=== PATIENT | female | born 1985 | race Caucasian/White ===

== ENCOUNTER → 2017-05-07 | Outpatient (REF) | payer OTHER ==
[2017-05-07 13:09] LABS: PERCENT SATURATION 30.4 % (13.2-37.4)
== END ==
LOC: M LAB REF 12:05
PROVIDERS: ATTEND Internal Medicine Medical Oncology
DX: E83.110 Hereditary hemochromatosis (principal)

== ENCOUNTER → 2017-05-14 | Outpatient (REF) | payer OTHER, MEDICAID ==
[2017-05-14 14:09] LABS: REASON FOR REVIEW COMPREHENSIVE REVIEW
== END ==
LOC: M LAB REF 13:25
PROVIDERS: ATTEND Internal Medicine Medical Oncology
DX: E83.110 Hereditary hemochromatosis (principal); D72.829 Elevated white blood cell count, unspecified

== ENCOUNTER → 2017-06-04 | Outpatient (REF) | payer OTHER, MEDICAID ==
[~2017-06-04] MED LIST: ACET30TAB PO; ADDE10CA3 PO; ESTR625TA PO; FURO20TA2; LISI10TA4; NAPR500T3 PO; NOVOINJ3; VICT18IN SC
[2017-06-04 19:08] LABS: FOLATE 9.8 NG/ML (>5.4)
== END ==
LOC: M LAB REF 16:37
PROVIDERS: ATTEND Internal Medicine Medical Oncology
DX: E83.110 Hereditary hemochromatosis (principal)

== ENCOUNTER → 2017-06-11 | Outpatient (CLI) | payer OTHER, MEDICAID ==
--- NOTE | 2017-06-11 15:37 | REP ---
MAXILLOFACIAL CT WITHOUT CONTRAST: HISTORY: Parotid mass. BBs were placed on the lateral face at the level of the masseter muscles. The sinuses are clear. The osteomeatal units are patent. The middle and inferior nasal turbinates are partially paradoxical. There is very minimal deviation of the nasal septum to the right. The cribriform plate, medial childs of the orbits, and optic canals are intact. The carotid canals form a segment of the posterolateral childs of the sphenoid sinus. The sphenoid sinus septum inserts into the right internal carotid canal wall. The naso- and oropharynx are normal in appearance. The salivary glands are normal in size and density. Small lymph nodes less than 1 cm in size are present in the posterior triangles, submandibular and submental areas. IMPRESSION: There is no acute or chronic sinusitis. Signed by Chu Booth MD 06/11/2017 03:41 P
== END ==
LOC: M RAD 12:16
PROVIDERS: ATTEND Otolaryngology
DX: R22.1 Localized swelling, mass and lump, neck (principal)

== ENCOUNTER 2017-07-06 20:11 | Emergency (ER) | payer OTHER, MEDICAID ==
[~2017-07-06] VITALS: Ht 162.6 cm; Wt 94.1 kg
[2017-07-06 20:12] VITALS: BP 138/90
[2017-07-06] MEDS ORDERED: ACET30TAB PO (20:48)
[2017-07-06] MEDS ORDERED: LISI10TA4 (20:48)
[2017-07-06] MEDS ORDERED: ESTR625TA PO (20:48)
[2017-07-06] MEDS ORDERED: NOVOINJ3 (20:48)
[2017-07-06] MEDS ORDERED: NAPR500T3 PO (20:48)
[2017-07-06] MEDS ORDERED: VICT18IN SC (20:48)
[2017-07-06] MEDS ORDERED: FURO20TA2 (20:48)
[2017-07-06] MEDS ORDERED: ADDE10CA3 PO (20:48)
== END 2017-07-06 22:35 | disposition left against medical advice (07) ==
LOC: M ED 20:11
DX: M25.551 Pain in right hip (principal); Z53.29 Procedure and treatment not carried out because of patient's decision for other reasons

== ENCOUNTER → 2017-07-08 | Outpatient (REF) | payer MEDICAID ==
[2017-07-08 16:18] LABS: CALCIUM LEVEL 9.4 MG/DL (8.5-10.1); PHOSPHORUS LEVEL 2.9 MG/DL (2.5-4.9)
== END ==
LOC: M LABDRAW1 15:15
PROVIDERS: ATTEND Internal Medicine Endocrinology, Diabetes & Metabolism
DX: E83.52 Hypercalcemia (principal); M89.8X0 Other specified disorders of bone, multiple sites

== ENCOUNTER → 2017-08-06 | Outpatient (REF) | payer OTHER, MEDICAID ==
[2017-08-06 20:29] LABS: PERCENT SATURATION 33.7 % (13.2-45.0)
== END ==
LOC: M LAB REF 14:47
PROVIDERS: ATTEND Internal Medicine Medical Oncology
DX: E83.110 Hereditary hemochromatosis (principal)

== ENCOUNTER → 2017-09-10 | Outpatient (CLI) | payer MEDICAID ==
[2017-09-10 14:02] LABS: MEAN CORPUSCULAR HGB CONC 34.1 g/dl (32.0-36.5); MEAN CORPUSCULAR VOLUME 90.9 fl (80.0-96.0); PLATELET COUNT, AUTOMATED 278 10^3/uL (150-450); RED CELL DISTRIBUTION WIDTH 11.9 % (11.5-14.5); WHITE BLOOD COUNT 9.6 10^3/uL (4.0-10.0)
[2017-09-10 14:06] LABS: ADD MANUAL DIFFER YES; BLASTS POS FLAG; DIFF SLIDE NUMBER 241; POSITIVE MORPH POS FLAG
[2017-09-10 14:21] LABS: BASOPHILS 1 % (0-4); EOSINOPHILS 1 % (0-5)
[2017-09-10 14:31] LABS: ERYTHROCYTE SEDIMENTATION RATE 9 mm/hr (0-20)
[2017-09-10 15:03] LABS: ALBUMIN 3.9 GM/DL (3.2-5.2); ALBUMIN/GLOBULIN RATIO 1.26 (1.00-1.93); ALKALINE PHOSPHATASE 127 U/L (45-117); ALT/SGPT 54 U/L (12-78); ANION GAP 6 MEQ/L (8-16); AST/SGOT 33 U/L (15-37); BILIRUBIN,TOTAL 0.4 MG/DL (0.2-1.0); BLOOD UREA NITROGEN 10 MG/DL (7-18); CALCIUM LEVEL 9.2 MG/DL (8.5-10.1); CARBON DIOXIDE LEVEL 29 MEQ/L (21-32); CHLORIDE LEVEL 103 MEQ/L (98-107); CREATININE FOR GFR 0.66 MG/DL (0.55-1.02); FERRITIN 165 NG/ML (8-252); GLOMERULAR FILTRATION RATE > 60.0 (>60); GLUCOSE, FASTING 267 MG/DL (70-105); PERCENT SATURATION 31.7 % (13.2-45.0); SODIUM LEVEL 138 MEQ/L (136-145); TOTAL IRON BINDING CAPACITY 341 UG/DL (250-450)
[2017-09-12 00:06] LABS: Lyme Disease IgG/IgM Antibodie <0.91 ISR (0.00-0.90); Lyme Disease IgM Ab Quantitati <0.80 index (0.00-0.79)
== END ==
LOC: M LAB 12:46
PROVIDERS: ATTEND Internal Medicine Rheumatology
DX: R74.0 Nonspecific elevation of levels of transaminase and lactic acid dehydrogenase [LDH] (principal)

== ENCOUNTER → 2017-12-07 | Outpatient (REF) | payer MEDICAID, OTHER ==
[2017-12-07 13:21] LABS: HEMATOCRIT 44.1 % (36.0-47.0)
[2017-12-07 13:52] LABS: FERRITIN 162 NG/ML (8-252); IRON (FE) 100 UG/DL (50-170); PERCENT SATURATION 28.7 % (13.2-45.0); TOTAL IRON BINDING CAPACITY 349 UG/DL (250-450)
[2017-12-08 11:03] LABS: PRETREATED FOLATE FOR RBCFOL 12.5 NG/ML; RBC FOLATE 595.2 NG/ML (280-791)
== END ==
LOC: M LAB REF 12:45
DX: E83.119 Hemochromatosis, unspecified (principal)
CPT/HCPCS: 83550

== ENCOUNTER → 2019-05-09 | Outpatient (REF) | payer OTHER ==
[~2019-05-09] MED LIST changes: +ACET-716 PO; -ACET30TAB PO; +NAPR-885 PO; -NAPR500T3 PO
[2019-05-09 18:19] LABS: APPEARANCE, URINE CLEAR (CLEAR); BACTERIA, URINE AUTO 1+ (NEGATIVE); BILIRUBIN, URINE AUTO NEGATIVE (NEGATIVE); BLOOD, URINE BLOOD NEGATIVE (NEGATIVE); COLOR, URINE YELLOW (YELLOW); GLUCOSE, URINE (UA) AUTO 1+ mg/dL (NEGATIVE); KETONE, URINE AUTO NEGATIVE (NEGATIVE); LEUKOCYTE ESTERASE, URINE AUTO NEGATIVE (NEGATIVE); NITRITE, URINE AUTO NEGATIVE (NEGATIVE); PROTEIN, URINE AUTO NEGATIVE (NEGATIVE); RBC, URINE AUTO 0 /HPF (0-3); SPECIFIC GRAVITY URINE AUTO 1.011 (1.002-1.035); SQUAMOUS EPITHELIAL CELL UR AU 1 /HPF (0-6); UROBILINOGEN, URINE AUTO 0.2 mg/dL (0.0-2.0); WBC, URINE AUTO 1 /HPF (0-3)
== END ==
LOC: M SMT 17:16
PROVIDERS: ATTEND Nurse Practitioner Family
DX: R31.0 Gross hematuria (principal)

== ENCOUNTER 2019-05-17 16:56 | Emergency (ER) | payer OTHER ==
[~2019-05-17] VITALS: Ht 165.1 cm; Wt 89.1 kg
[~2019-05-17 16:56] MED LIST changes: -FURO20TA2; +FURO20TA2 PO; -LISI10TA4; +LISI10TA4 PO; -NOVOINJ3; +NOVOINJ3 SC
[2019-05-17] MEDS ORDERED: TRUL0.5I SC (17:03)
[2019-05-17] MEDS ORDERED: LEVO500T3 (17:03)
[2019-05-17] MEDS ORDERED: MORPHINE 4 MG/ML 1ML VIAL/SYRINGE (J2270) IV ONE ×2 (17:45→19:30)
[2019-05-17] MEDS ORDERED: NS 1,000 ML IV ONE (17:45)
[2019-05-17] MEDS ORDERED: ONDANSETRON 4MG/2ML VIAL (J2405) IV ONE (17:45)
[2019-05-17 18:08] LABS: HEMATOCRIT 45.6 % (36.0-47.0); HEMOGLOBIN 16.4 g/dl (12.0-15.5); MEAN CORPUSCULAR VOLUME 88.9 fl (80.0-96.0); PLATELET COUNT, AUTOMATED 326 10^3/uL (150-450); RED BLOOD COUNT 5.13 10^6/uL (4.00-5.40)
[2019-05-17] MEDS ORDERED: ISOVUE-370 76% 100ML VIAL (Q9967) As Ordered ONE (18:13)
[2019-05-17 18:15] LABS: WHITE BLOOD COUNT 12.5 10^3/uL (4.0-10.0)
[2019-05-17 18:36] LABS: ATYPICAL LYMPH 2 % (0-5); BASOPHILS 1 % (0-4); LYMPHOCYTES 41 % (16-52); MONOCYTES 3 % (0-8); NEUTROPHILS 53 % (35-75)
[2019-05-17 18:37] LABS: PLATELET ESTIMATE NORMAL (NORMAL)
[2019-05-17 18:39] LABS: ALBUMIN 4.3 GM/DL (3.2-5.2); ALT/SGPT 37 U/L (12-78); BILIRUBIN,DIRECT < 0.1 MG/DL (0.0-0.2); BILIRUBIN,TOTAL 0.4 MG/DL (0.2-1.0); LIPASE 210 U/L (73-393); TOTAL PROTEIN 8.1 GM/DL (6.4-8.2)
--- NOTE | 2019-05-17 18:45 | REP ---
Clinical: Bilateral flank pain and hematuria. Technique: Axial precontrast, postcontrast, and delayed images of the abdomen and pelvis using 100 ml Isovue 370 intravenous contrast material with coronal and sagittal re-formations. Comparison: 10/15/2013 Findings: Evaluation of the urinary tract system demonstrates normal appearance of the bilateral kidneys, ureters and bladder. Kidneys demonstrate symmetric parenchymal enhancement without perinephric stranding, hydroureteronephrosis, or nephroureterolithiasis. Liver, spleen, pancreas, gallbladder, and bilateral adrenal glands are normal. The enteric system is without obstruction or acute inflammatory process. Pelvis demonstrates normal bladder and age-appropriate uterus/adnexa. No pelvic fluid or ascites. No free air. No adenopathy. Abdominal aorta and vasculature normal. Musculoskeletal structures are intact. Lung bases are clear. Impression: 1. Normal appearance to the urinary tract system. 2. No acute abdominopelvic pathology appreciated. Electronically Signed by Mikhail Chambers MD 05/17/2019 06:36 P
[2019-05-17 21:08] VITALS: BP 109/71
[2019-05-17 22:39] LABS: CHLAMYDIA DNA AMPLIFICATION NEGATIVE (NEGATIVE); GC DNA AMPLIFICATION NEGATIVE (NEGATIVE)
[2019-05-18] MEDS ORDERED: DIFL150T PO (04:20)
[2019-05-22] MEDS ORDERED: TRAM50TA2 PO (11:28)
== END 2019-05-17 21:10 | disposition home or self-care (01) ==
LOC: M ED 16:56
DX: N32.89 Other specified disorders of bladder (principal); D72.829 Elevated white blood cell count, unspecified; E11.9 Type 2 diabetes mellitus without complications; I10 Essential (primary) hypertension; Z87.442 Personal history of urinary calculi; Z79.899 Other long term (current) drug therapy; Z79.4 Long term (current) use of insulin; Z88.0 Allergy status to penicillin; Z88.1 Allergy status to other antibiotic agents; Z88.2 Allergy status to sulfonamides; Z88.8 Allergy status to other drugs, medicaments and biological substances; F17.210 Nicotine dependence, cigarettes, uncomplicated
CPT/HCPCS: 74178; 80047; 80076; 81001; 83690; 85025; 87491; 87591; 96361; 96374; 96375; 96376; 99284; J2270; J2405; Q9967

== ENCOUNTER 2019-05-21 17:37 | Inpatient (IN) | payer OTHER ==
[~2019-05-21] VITALS: Ht 167.6 cm; Wt 89.1 kg
[~2019-05-21 17:37] MED LIST changes: +DIFL150T PO; +LEVO500T3; +TRUL0.5I SC
[2019-05-21] MEDS ORDERED: FLUC150T PO ×2 (17:45→19:51)
[2019-05-21] MEDS ORDERED: PHEN-593 PO (17:45)
[2019-05-21] MEDS ORDERED: NS 1,000 ML IV ONE (18:15)
[2019-05-21 18:18] LABS: HEMATOCRIT 43.8 % (36.0-47.0); HEMOGLOBIN 15.1 g/dl (12.0-15.5); MEAN CORPUSCULAR HEMOGLOBIN 31.4 pg (27.0-33.0); MEAN CORPUSCULAR HGB CONC 34.5 g/dl (32.0-36.5); MEAN CORPUSCULAR VOLUME 91.1 fl (80.0-96.0); PLATELET COUNT, AUTOMATED 315 10^3/uL (150-450); RED BLOOD COUNT 4.81 10^6/uL (4.00-5.40)
[2019-05-21 18:24] LABS: WHITE BLOOD COUNT 11.8 10^3/uL (4.0-10.0)
[2019-05-21] MEDS ORDERED: ONDANSETRON 4MG/2ML VIAL (J2405) IV ONE (18:30)
[2019-05-21] MEDS ORDERED: KETOROLAC 30 MG/ML VIAL (J1885) IV ONE (18:30)
[2019-05-21] MEDS ORDERED: diazePAM 5 MG TAB PO ONE (18:30)
[2019-05-21 18:44] LABS: ALT/SGPT 31 U/L (12-78); BILIRUBIN,DIRECT < 0.1 MG/DL (0.0-0.2); BILIRUBIN,TOTAL 0.4 MG/DL (0.2-1.0); BLOOD UREA NITROGEN 16 MG/DL (7-18); CALCIUM LEVEL 9.3 MG/DL (8.5-10.1); CARBON DIOXIDE LEVEL 28 MEQ/L (21-32); CHLORIDE LEVEL 106 MEQ/L (98-107); CREATININE FOR GFR 0.68 MG/DL (0.55-1.30); GLOMERULAR FILTRATION RATE > 60.0 (>60); GLUCOSE, FASTING 132 MG/DL (70-100); LIPASE 168 U/L (73-393); POTASSIUM SERUM 4.1 MEQ/L (3.5-5.1); SODIUM LEVEL 141 MEQ/L (136-145); TOTAL PROTEIN 7.7 GM/DL (6.4-8.2)
[2019-05-21 18:53] LABS: ATYPICAL LYMPH 7 % (0-5); BASOPHILS 1 % (0-4); LYMPHOCYTES 53 % (16-52); MONOCYTES 2 % (0-8); NEUTROPHILS 37 % (35-75); OVALOCYTES 1+; PLATELET ESTIMATE NORMAL (NORMAL); POIKILOCYTOSIS 1+
--- NOTE | 2019-05-21 19:19 | REPVR ---
EXAM: US Retroperitoneal Limited, Kidneys EXAM DATE/TIME: 05/21/2019 7:09 PM CLINICAL HISTORY: 34 years old, female; Abdominal pain; Flank; Left; Additional info: Left flank pain TECHNIQUE: Imaging protocol: Real-time ultrasound of the retroperitoneum with image documentation. Examination was focused on the kidneys. COMPARISON: CT ABD PELVIS W/O FOL BY WIT 05/17/2019 6:15 PM FINDINGS: Right kidney: Right kidney measures 13.1 x 5.4 x 5.3 cm. Left kidney: Left kidney measures 12.4 x 4.4 x 6.1 cm. Diffuse increased Doppler flow in the left kidney comparison to the right. Findings may indicate acute inflammation including pyelonephritis which should be correlated clinically. Bladder: Normal bladder. IMPRESSION: Diffuse increased Doppler flow in the left kidney comparison to the right. Findings may indicate acute inflammation including pyelonephritis which should be correlated clinically. Electronically signed by: Zeyad Bennett On 05/21/2019 19:19:15 PM
[2019-05-21] MEDS ORDERED: AZTREONAM 2 GM in D5W MINI-BAG PLUS 50 ML IV SCH (19:30)
[2019-05-21] MEDS ORDERED: AZTREONAM 2 GM in D5W MINI-BAG PLUS 50 ML IV ONE (19:45)
[2019-05-21] MEDS ORDERED: ADDE20CA3 PO (19:51)
[2019-05-21] MEDS ORDERED: HumaLOG INSULIN (NovoLOG) PER UNIT SC SCH (21:00)
[2019-05-21] MEDS ORDERED: ENOXAPARIN 40 MG/0.4 ML SYRINGE (J1650) SC SCH (21:00)
[2019-05-21] MEDS ORDERED: GLUCOSE 4 GM CHEW TABLET PO PRN (22:30)
[2019-05-21] MEDS ORDERED: PERCOCET 5MG/325MG TAB PO PRN ×2 (22:30)
[2019-05-21] MEDS ORDERED: GLUCAGON FOR INJ 1 MG VIAL (J1610) SC PRN (22:30)
[2019-05-21] MEDS ORDERED: NS 1,000 ML IV SCH (22:30)
[2019-05-21] MEDS ORDERED: ONDANSETRON 4MG/2ML VIAL (J2405) IV PRN (22:30)
[2019-05-21] MEDS ORDERED: DEXTROSE 50% 50 ML SYRINGE IV PRN (22:30)
--- NOTE | 2019-05-21 22:39 | HPEPDOC ---
[facility] Medical History & Physical Date of Admission May 21, 2019 Date of Service: May 21, 2019 History and Physical PCP: Isauro CHIEF COMPLAINT: Left sided pain HISTORY OF PRESENT ILLNESS: Patient is a 34-year-old female has a history of recurrent UTIs as well as nephrolithiasis who tells me back at the end of March she had a diffuse whole body rash and then shortly thereafter quickly resolved spontaneously, subsequently she developed gross hematuria which has had intermittently over the last 1 month. Is not been painful she was seen by her PCP at the end of March and told that it was likely urinary tract infection she reportedly grew a culture positive for Klebsiella at that time she finished 10 days of Levaquin but tells me that she really had no improvement in her symptoms or the frequency of her hematuria. She was then seen by urology the middle of this month and was told she needed a CT scan as well as scheduled for cystoscopy this coming Thursday. She presented to emergency room with her symptoms shortly thereafter a CT scan was completed which was fairly unremarkable. Over the last 48 hours she has had progressively worsening left-sided flank pain which has been new as well as nausea and vomiting. She tells me that she has had chills and sweats in this duration of time as well. Otherwise patient denies weight loss, hair loss, headache, visual changes, chest pain, shortness of breath, cough, diarrhea, muscle aches, worsening arthritis, change in mood, further rashes PAST MEDICAL HISTORY: 1. ADD. 2. Obesity. 3. Tobacco abuse 4. Hemochromatosis 5. Hypertension 6. Diabetes 7 nephrolithiasis 8. COS 9 history of recurrent UTIs. HOME MEDICATIONS: Please see below. ALLERGIES: Please see below PAST SURGICAL HISTORY: 1. Hysterectomy 2014. 2. 4. 3. Tubal ligation 4. Tonsillectomy 5. Appendectomy. SOCIAL HISTORY: Lives with: and 4 daughters, Employment: Owns a small gift shop, Tobacco use: Active smoker 20 pack years. ETOH: Denies alcohol, Illicit drug use: Denies, Tattoos done unprofessionally: Denies, CODE STATUS: Full code FAMILY HISTORY:Reviewed and noncontributory REVIEW OF SYSTEMS: 10 systems reviewed and negative other than HPI PHYSICAL EXAMINATION: VITAL SIGNS: Temperature 97.9, pulse 102, respiratory rate 24, blood pressure 138/87, pulse oximetry 100 % on room air. GENERAL: Pleasant obese femalesitting up in bed awake alert oriented speaking in complete sentences no acute distress HEENT: Dry mucous membranes no elevation and CVP CARDIOVASCULAR: S1 S2 regular, mildly tachycardic no additional heart sounds a ppreciated. RESPIRATORY: Clear to auscultation bilaterally. ABDOMINAL: Bowel sounds present abdomen soft and nontender, left flank CVA tenderness EXTREMITIES: No clubbing cyanosis or edema NEUROLOGICAL: Spontaneously moves all 4 extremities cranial 2 through 12 grossly intact no gross focal deficits appreciated PSYCHOLOGICAL: Appropriate LABORATORY DATA: See below. MICROBIOLOGY: Please see below. IMAGING: CT abdomen and pelvis 05/17/2019:1. Normal appearance to the urinary tract system. 2. No acute abdominopelvic pathology appreciated Renal ultrasound 05/21/2019:Diffuse increased Doppler flow in the left kidney comparison to the right. Findings may indicate acute inflammation including pyelonephritis which should be correlated clinically. ASSESSMENT & PLAN: This is a 34-year-old female with left-sided pyelonephritis. PROBLEMS: 1. Left-sided flank pain: Likely secondary to left-sided pyelonephritis she does have leukocytosis some subjective chills and sweats, she is tachycardic, her urinary sediment is fairly active although not significant for WBCs. She is having nausea and vomiting and as such I will admitted to the medical surgical service and start her on empiric antibiotics. She has significant allergies. Her clinical history is somewhat suspicious given 1 month of hematuria prior to the onset of her flank pain. I have asked urology to see her in consultation and they've agreed to see her tomorrow morning. She has a minimal protein but blood as well and her UA history is not suggestive for poststreptococcal glomerular nephritis, however should she fail to improve with antibiotics or any worsening in her renal function I would strongly consider nephrology consultation with concern for possible glomerulonephritis or possibly IgA nephropathy. I'll provide her with pain control and gentle IV fluids, as well as IV Zofran 2.Hypertension: Continue with lisinopril 3. Fluid retention: The patient does not know why she retains fluid which is been on Lasix for the last several years I will hold this for now provided with gentle fluids as she appears mildly dry on exam 4.ADD: Continue with Adderall 5. Diabetes: I scale insulin DVT PROPHYLAXIS:Lovenox DISPOSITION: [facility] floor Vital Signs Vital Signs Date Time Temp Pulse Resp B/P (MAP) Pulse Ox O2 Delivery O2 Flow Rate FiO2 05/21/19 21:44 05/21/19 17:37 97.9 102 24 100 Room Air Laboratory Data Labs 24H Laboratory Tests 2 05/21/19 18:03: White Blood Count 11.8H, Red Blood Count 4.81, Hemoglobin 15.1, Hematocrit 43.8, Mean Corpuscular Volume 91.1, Mean Corpuscular Hemoglobin 31.4, Mean Corpuscular Hemoglobin Concent 34.5, Red Cell Distribution Width 12.2, Platelet Count 315, Lymphocytes # (Auto) , Nucleated Red Blood Cells % (auto) 0.0, Neutrophils 37, Lymphocytes (Manual) 53H, Monocytes (Manual) 2, Basophils (Manual) 1, Atypical Lymphocytes 7H, Platelet Estimate NORMAL, Poikilocytosis 1+, Ovalocytes 1+, Urine Color EDWARDO, Urine Appearance HAZY, Urine pH 5.0, Urine Specific [place] 1.026, Urine Protein 1+H, Urine Glucose (UA) 1+H, Urine Ketones NEGATIVE, Urine Blood 3+H, Urine Nitrite POSITIVEH, Urine Bilirubin NEGATIVE, Urine Urobilinogen 2.0H, Urine Leukocyte Esterase NEGATIVE, Urine WBC (Auto) 3, Urine RBC (Auto) TNTCH, Urine Hyaline Casts (Auto) 0, Urine Bacteria (Auto) NEGATIVE, Urine Squamous Epithelial Cells 1, Urine Mucus (Auto) SMALL, Urine Sperm (Auto) , Anion Gap 7L, Glomerular Filtration Rate > 60.0, Calcium Level 9.3, Aspartate Amino Transf (AST/SGOT) 20, Alanine Aminotransferase (ALT/SGPT) 31, Alkaline Phosphatase 123H, Total Bilirubin 0.4, Direct Bilirubin < 0.1, Total Protein 7.7, Albumin 4.0, Albumin/Globulin Ratio 1.08, Lipase 168 05/21/19 18:23: Lactic Acid Level 1.2 CBC/BMP Laboratory Tests 05/21/19 18:03 Red Blood Count 4.81, Mean Corpuscular Volume 91.1, Mean Corpuscular Hemoglobin 31.4, Mean Corpuscular Hemoglobin Concent 34.5, Red Cell Distribution Width 12.2, Lymphocytes # (Auto) Microbiology Microbiology 05/21/19 Blood Culture, Received Pending 05/21/19 Blood Culture, Received Pending 05/21/19 Urine Culture, Received Pending Home Medications Scheduled Dextroamphetamine/Amphetamine (Adderall Xr 20 mg Capsule) 20 Mg Cap.er.24h, 20 MG PO DAILY Dulaglutide (Trulicity) 1.5 Mg/0.5 Ml Pen.injctr, 0.5 ML SC 1XWK USES ON THURSDAY Fluconazole (Fluconazole) 150 Mg Tablet, 150 MG PO ONCE TAKE IF NO RELIEF IN 72 HOURS FROM FIRST PILL TAKEN 05/17/2019 Fluconazole (Fluconazole) 150 Mg Tablet, 150 MG PO ONCE Furosemide (Furosemide) 20 Mg Tab, 20 MG PO DAILY Insulin Aspart (Novolog Flexpen) 100 Unit/Ml Inj, 1 UNIT SC TID SLIDING SCALE Lisinopril (Lisinopril) 10 Mg Tab, 10 MG PO DAILY Phenazopyridine HCl (Phenazopyridine HCl) 100 Mg Tablet, 100 MG PO TID AFTER MEALS FOR 7 DAYS, STARTED 05/18/2019 Allergies Coded Allergies: Penicillins (Verified Allergy, Intermediate, HIVES, FEVER -AUGMENTIN, 02/24/19) Sulfa (Sulfonamide Antibiotics) (Verified Allergy, Intermediate, RASH, FEVER, 02/24/19) nitrofurantoin (Verified Allergy, Intermediate, RASH, FEVER - MACROBID, 02/24/19) Cephalosporins (Verified Allergy, Unknown, KEFLEX-RASH/FEVER,ROCEPHIN - HIVES, 02/24/19) (TRASCRIBED FROM MS TO FDB CONVERSION) Quinolones (Verified Allergy, Unknown, RASH, FEVER - CIPRO, 02/24/19) A-FIB/CHADSVASC A-FIB History Current/History of A-Fib/PAF?: No SOFIE HUGHES MD May 21, 2019 22:39
[2019-05-22] VITALS: BP 156/91
[2019-05-22] MEDS ORDERED: MEROPENEM INJ 1 GM in APPROPRIATE DILUENT 1 EA IV SCH ×2
[2019-05-22] MEDS: MEROPENEM INJ 1 GM in APPROPRIATE DILUENT 1 EA IV SCH ×2 (01:19→08:08)
[2019-05-22 06:56] LABS: HEMATOCRIT 37.8 % (36.0-47.0); MEAN CORPUSCULAR HEMOGLOBIN 31.1 pg (27.0-33.0); MEAN CORPUSCULAR HGB CONC 33.9 g/dl (32.0-36.5); MEAN CORPUSCULAR VOLUME 91.7 fl (80.0-96.0); PLATELET COUNT, AUTOMATED 266 10^3/uL (150-450); RED BLOOD COUNT 4.12 10^6/uL (4.00-5.40); WHITE BLOOD COUNT 9.3 10^3/uL (4.0-10.0)
[2019-05-22 07:12] LABS: HEMOGLOBIN 12.8 g/dl (12.0-15.5)
[2019-05-22 07:22] LABS: BLOOD UREA NITROGEN 16 MG/DL (7-18); CALCIUM LEVEL 8.7 MG/DL (8.5-10.1); CARBON DIOXIDE LEVEL 28 MEQ/L (21-32); CHLORIDE LEVEL 108 MEQ/L (98-107); CREATININE FOR GFR 0.71 MG/DL (0.55-1.30); GLOMERULAR FILTRATION RATE > 60.0 (>60); GLUCOSE, FASTING 156 MG/DL (70-100); POTASSIUM SERUM 4.2 MEQ/L (3.5-5.1); SODIUM LEVEL 141 MEQ/L (136-145)
[2019-05-22] MEDS ORDERED: HumaLOG INSULIN (NovoLOG) PER UNIT SC SCH (07:30)
[2019-05-22 08:00] VITALS: BP 126/75
[2019-05-22 08:09] VITALS: BP 126/75
[2019-05-22] MEDS ORDERED: AMPHETAMINE/DEXTROAMPHETAMINE 5 MG *ER* CAPSULE (ADDERALL XR) PO SCH (09:00)
[2019-05-22] MEDS ORDERED: LISINOPRIL 10 MG TAB PO SCH (09:00)
[2019-05-22 10:08] VITALS: BP 126/75
--- NOTE | 2019-05-22 10:41 | CR ---
DATE: 05/22/2019 REASON FOR CONSULTATION: Gross hematuria. HISTORY: Ms Multani is a 34-year-old 4, para 4 lady with previous subtotal hysterectomy and bilateral oophorectomy who has a past history of ureterolithiasis with spontaneous passage in 2011 and a several month history of intermittent gross hematuria of tea or cocoa colored urine. She has not passed clots. She has had an episode of positive Streptococcus test approximately 2 months ago but was already having intermittent left-sided symptoms at that time. She has had several positive cultures, the last being in March at which time she grew a Levaquin sensitive Klebsiella organism, which was treated with Levaquin. She had a negative culture when seen for urology consultation in the office by Ms. Gamino on 05/09. At that time her micro-urinalysis was clear. She also had a negative urine culture earlier this week at her primary care doctor's office. She was not on antibiotics during either of these visits. She still has intermittent left-sided flank pain. CT urography negative this week. Renal ultrasound done last night showed increased blood flow to the left kidney suspicious for an inflammatory process. There was no evidence of hydronephrosis. No evidence of mass. The patient is scheduled for an office cystoscopy on the [address] Sexton in urology. The patient reports that she was seen on one occasion by a credit risk management director who did not think she had a rheumatologic syndrome. She has never been seen by nephrology. She does have a strong family history of rheumatoid arthritis and lupus including a sister. She does have problems with diffuse joint aches, sporadic rashes not present today and has been having sporadic back pain. She carries the diagnosis of hemochromatosis and diabetes. She also has a history of hypertension, primary and second-hand smoke exposure, currently up to a pack per day. She carries the diagnosis of attention deficit disorder (ADD). PAST SURGICAL HISTORY: Include appendectomy, subtotal hysterectomy, four sections, tonsillectomy, and tubal ligation. SOCIAL HISTORY: She is and runs a small gift shop. She is an active smoker. For remainder of her past medical, surgical, social, family history and review of systems please refer to her dictated history and physical on chart. PHYSICAL EXAMINATION: Her temperature 97.8. She has been afebrile since admission. Respirations 20, pulse 94, blood pressure 156/91. Saturation 98%. General: She is an obese white female in no acute distress who is awake, alert and oriented. She is cooperative. Neck: Supple. Chest: Clear. Cardiac: Regular rate and rhythm. Abdomen: Soft, with some tenderness in the left flank. Peripheral edema is not appreciated. Neurological: Nonfocal. No definite skin rashes are noted. RADIOGRAPHIC STUDIES: Reviewed with no stones and increased blood flow noted to left kidney on Doppler ultrasonography. IMPRESSION: Intermittent gross hematuria with the possibility of a rheumatologic condition or autoimmune process with possible glomerulonephritis. Bladder cancer needs to be ruled out given her smoke exposure and gross hematuria, but I think this unlikely. She has had urinary infections, but recent cultures negative. Her last infection was treated adequately less than a month ago. PLAN: Check urine culture. If negative, proceed with office cystoscopy with Dr. Sexton on 05/24. Consideration for further nephrologic and rheumatologic evaluation should be given. Thank you for this consultation. I appreciate the opportunity to see Ms. Multani. I will make her presence known to incoming urologic staff tomorrow.
[2019-05-22] MEDS ORDERED: TRAM50TA2 PO (11:28)
[2019-05-22] MEDS ORDERED: ONDA4TAB6 PO (11:39)
--- NOTE | 2019-05-25 14:47 | DS.PDOC ---
Discharge Summary General Date of Admission May 21, 2019 at 21:14 Date of Discharge 05.22.19 Discharge Summary PROCEDURES PERFORMED DURING STAY: [None]. ADMITTING DIAGNOSES: 1. . DISCHARGE DIAGNOSES: 1. . COMPLICATIONS/CHIEF COMPLAINT: Pyelonephritis. HISTORY OF PRESENT ILLNESS: Patient is a 34-year-old female has a history of recurrent UTIs as well as nephrolithiasis who tells me back at the end of March sh e had a diffuse whole body rash and then shortly thereafter quickly resolved spontaneously, subsequently she developed gross hematuria which has had intermittently over the last 1 month. Is not been painful she was seen by her PCP at the end of March and told that it was likely urinary tract infection she reportedly grew a culture positive for Klebsiella at that time she finished 10 days of Levaquin but tells me that she really had no improvement in her symptoms or the frequency of her hematuria. She was then seen by urology the middle of this month and was told she needed a CT scan as well as scheduled for cystoscopy this coming Thursday. She presented to emergency room with her symptoms shortly thereafter a CT scan was completed which was fairly unremarkable. Over the last 48 hours she has had progressively worsening left-sided flank pain which has been new as well as nausea and vomiting. She tells me that she has had chills and sweats in this duration of time as well. Otherwise patient denies weight loss, hair loss, headache, visual changes, chest pain, shortness of breath, cough, diarrhea, muscle aches, worsening arthritis, change in mood, further rashes PAST MEDICAL HISTORY: 1. ADD. 2. Obesity. 3. Tobacco abuse 4. Hemochromatosis 5. Hypertension 6. Diabetes 7 nephrolithiasis 8. COS 9 history of recurrent UTIs. HOSPITAL COURSE: Pt was admitted and seen by urology who felt that she did not in fact have a uti. They felt that the hematuria and pain was more likely autoimmune, perhaps lupus nephritis. After discussing with them pt was no longer willing to stay in the hospital. She was agreeable to follow up with nephrology as an outpatient for further workup DISCHARGE MEDICATIONS: Please see below. ALLERGIES: Please see below. PHYSICAL EXAMINATION ON DISCHARGE: VITAL SIGNS: Please see below. GENERAL: comfortable, no apparent distress HEENT: normocephalic, atraumatic, perrl, eomi NECK: supple, no jvd CARDIOVASCULAR EXAMINATION: RRR, S1S2, no MRG RESPIRATORY EXAMINATION: unlabored, CTAB ABDOMINAL EXAMINATION: soft nontender nondistended EXTREMITIES: good strength, rom nl, no swelling SKIN: no rash, no lesion NEUROLOGICAL EXAMINATION: no focal deficit PSYCHIATRIC EXAMINATION: A+Ox3 nl mood and affect LABORATORY DATA: Please see below. ACTIVITY: [As tolerated]. DIET: [diabetic] DISPOSITION: Home, Self-Care. DISCHARGE CONDITION: [Stable]. Vital Signs/I&Os Vital Signs Date Time Temp Pulse Resp B/P (MAP) Pulse Ox O2 Delivery O2 Flow Rate FiO2 05/22/19 10:08 97.1 83 18 126/75 98 05/21/19 22:46 Room Air Microbiology Microbiology 05/21/19 Blood Culture - Preliminary, Resulted No Growth after 72 hours. All specime... 05/21/19 Blood Culture - Preliminary, Resulted No Growth after 72 hours. All specime... 05/21/19 Urine Culture - Final, Complete Discharge Medications Scheduled Dextroamphetamine/Amphetamine (Adderall Xr 20 mg Capsule) 20 Mg Cap.er.24h, 20 MG PO DAILY, (Reported) Dulaglutide (Trulicity) 1.5 Mg/0.5 Ml Pen.injctr, 0.5 ML SC 1XWK, (Reported) USES ON THURSDAY Fluconazole (Fluconazole) 150 Mg Tablet, 150 MG PO ONCE, (Reported) TAKE IF NO RELIEF IN 72 HOURS FROM FIRST PILL TAKEN 05/17/2019 Furosemide (Furosemide) 20 Mg Tab, 20 MG PO DAILY, (Reported) Insulin Aspart (Novolog Flexpen) 100 Unit/Ml Inj, 1 UNIT SC TID, (Reported) SLIDING SCALE Lisinopril (Lisinopril) 10 Mg Tab, 10 MG PO DAILY, (Reported) Phenazopyridine HCl (Phenazopyridine HCl) 100 Mg Tablet, 100 MG PO TID, (Reported) AFTER MEALS FOR 7 DAYS, STARTED 05/18/2019 Scheduled PRN Ondansetron (Ondansetron Odt) 4 Mg Tab.rapdis, 4 MG PO Q6-8HP PRN for nausea/vomiting Tramadol HCl (Tramadol HCl) 50 Mg Tablet, 1 TAB PO Q6HP PRN for pain Allergies Coded Allergies: Penicillins (Verified Allergy, Intermediate, HIVES, FEVER -AUGMENTIN, 02/24/19) Sulfa (Sulfonamide Antibiotics) (Verified Allergy, Intermediate, RASH, FEVER, 02/24/19) nitrofurantoin (Verified Allergy, Intermediate, RASH, FEVER - MACROBID, 02/24/19) Cephalosporins (Verified Allergy, Unknown, KEFLEX-RASH/FEVER,ROCEPHIN - HIVES, 02/24/19) (TRASCRIBED FROM MS TO FDB CONVERSION) Quinolones (Verified Allergy, Unknown, RASH, FEVER - CIPRO, 02/24/19) YARON MIRELES MD May 25, 2019 14:47
== END 2019-05-22 12:05 | disposition home or self-care (01) | DRG 468 ==
LOC: M ED 17:37 → M ED INP 21:14 → M PED 22:55
PROVIDERS: ADMIT Internal Medicine; ATTEND Hospitalist
DX: R31.0 Gross hematuria (principal); M32.14 Glomerular disease in systemic lupus erythematosus; I10 Essential (primary) hypertension; E83.119 Hemochromatosis, unspecified; E10.9 Type 1 diabetes mellitus without complications; F17.200 Nicotine dependence, unspecified, uncomplicated; E66.9 Obesity, unspecified; Z87.442 Personal history of urinary calculi; R60.9 Edema, unspecified; Z79.4 Long term (current) use of insulin; Z79.899 Other long term (current) drug therapy; Z88.0 Allergy status to penicillin; Z88.2 Allergy status to sulfonamides; Z88.1 Allergy status to other antibiotic agents; Z88.8 Allergy status to other drugs, medicaments and biological substances; Z90.710 Acquired absence of both cervix and uterus; Z90.722 Acquired absence of ovaries, bilateral; Z90.49 Acquired absence of other specified parts of digestive tract; Z68.31 Body mass index [BMI] 31.0-31.9, adult

== ENCOUNTER → 2019-05-24 | Outpatient (REF) | payer OTHER ==
[~2019-05-24] MED LIST changes: +ADDE20CA3 PO; +FLUC150T PO; +ONDA4TAB6 PO; +PHEN-593 PO; +TRAM50TA2 PO
== END ==
LOC: M SMT 13:07
PROVIDERS: ATTEND Urology
DX: Z87.448 Personal history of other diseases of urinary system (principal)

== ENCOUNTER → 2019-07-28 | Outpatient (REF) | payer OTHER ==
[2019-07-28 17:25] LABS: COMPLEMENT C3 174 MG/DL (90-180); COMPLEMENT C4 28 MG/DL (10-40); INR 0.91
[2019-07-28 17:26] LABS: PARTIAL THROMBOPLASTIN TIME 30.2 SECONDS (25.0-38.4)
[2019-08-03 14:15] LABS: ANCA-ATYPICAL <1:20 titer (Neg:<1:20); ANTI DOUBLE STRAND-DNA AB 1 IU/mL (0-9); ANTI DS-DNA AB <1:10 titer (.); ANTINUCLEAR ANTIBODIES DIRECT Positive (Negative); CYTOPLASMIC NEUTROP AB ANCA-C <1:20 titer (Neg:<1:20); PERINUCLEAR AB ANCA-P <1:20 titer (Neg:<1:20); RNP ANTIBODIES <0.2 AI (0.0-0.9); SJOGREN'S ANTI SS-A <0.2 AI (0.0-0.9); SJOGREN'S ANTI SS-B <0.2 AI (0.0-0.9); SMITH ANTIBODIES <0.2 AI (0.0-0.9)
== END ==
LOC: M LAB REF 17:02
PROVIDERS: ATTEND Internal Medicine Nephrology
DX: R31.9 Hematuria, unspecified (principal)

== ENCOUNTER 2021-12-22 22:18 | Emergency (ER) | payer OTHER ==
[~2021-12-22] VITALS: Ht 162.6 cm; Wt 87.1 kg
[~2021-12-22 22:18] MED LIST changes: +ATOR1TAB21 PO; +BASA100I SQ; +CYCL-707 PO; +ELDERBERRY GUMMIES PO; -FLUC150T PO; +FLUC150T9 PO; -LEVO500T3; +LEVO500T4; +LISI10TA22 PO; -LISI10TA4 PO; -PHEN-593 PO; +PHEN1TAB73 PO
[2021-12-22 22:20] VITALS: BP 150/110
== END 2021-12-22 23:46 | disposition left against medical advice (07) ==
LOC: M ED 22:18
DX: Z53.21 Procedure and treatment not carried out due to patient leaving prior to being seen by health care provider (principal)

== ENCOUNTER 2022-01-20 13:29 | Emergency (ER) | payer OTHER ==
[~2022-01-20] VITALS: Ht 162.6 cm; Wt 83.6 kg
[2022-01-20] MEDS ORDERED: STEG5TAB (13:56)
[2022-01-20] MEDS ORDERED: CLAR10TA7 (13:56)
[2022-01-20 17:12] LABS: HEMATOCRIT 47.1 % (36.0-47.0); HEMOGLOBIN 15.9 g/dl (12.0-15.5); MEAN CORPUSCULAR HEMOGLOBIN 30.1 pg (27.0-33.0); MEAN CORPUSCULAR HGB CONC 33.8 g/dl (32.0-36.5); PLATELET COUNT, AUTOMATED 317 10^3/uL (150-450); RED BLOOD COUNT 5.29 10^6/uL (4.00-5.40); WHITE BLOOD COUNT 14.1 10^3/uL (4.0-10.0)
[2022-01-20 17:28] LABS: ALBUMIN 4.5 GM/DL (3.2-5.2); BILIRUBIN,DIRECT 0.1 MG/DL (0.0-0.2); BILIRUBIN,TOTAL 0.4 MG/DL (0.2-1.0); C REACTIVE PROTEIN QUANTITATIV 1.33 MG/DL (0.00-0.30); TOTAL PROTEIN 8.1 GM/DL (6.4-8.2)
[2022-01-20 17:41] LABS: HEMOGLOBIN A1c 8.9 %
[2022-01-20 17:44] LABS: ERYTHROCYTE SEDIMENTATION RATE 20 mm/hr (0-20)
[2022-01-20] MEDS ORDERED: DOXY-443 PO (18:08)
[2022-01-20 18:13] LABS: ATYPICAL LYMPH 2 % (0-5); BASOPHILS 1 % (0-1); EOSINOPHILS 2 % (0-3); LYMPHOCYTES 42 % (16-44); NEUTROPHILS 53 % (28-66); PLATELET ESTIMATE NORMAL (NORMAL)
[2022-01-20 18:45] VITALS: BP 123/55
== END 2022-01-20 18:47 | disposition home or self-care (01) ==
LOC: M ED 13:29
DX: L02.31 Cutaneous abscess of buttock (principal); Q64.4 Malformation of urachus; E11.9 Type 2 diabetes mellitus without complications; I10 Essential (primary) hypertension; F17.200 Nicotine dependence, unspecified, uncomplicated; Z88.2 Allergy status to sulfonamides; Z88.0 Allergy status to penicillin; Z88.8 Allergy status to other drugs, medicaments and biological substances; Z79.899 Other long term (current) drug therapy; Z79.4 Long term (current) use of insulin

== ENCOUNTER 2022-01-24 14:43 | Emergency (ER) | payer OTHER ==
[~2022-01-24] VITALS: Ht 162.6 cm; Wt 85.1 kg
[2022-01-24 14:43] VITALS: BP 121/83
[~2022-01-24 14:43] MED LIST changes: +CLAR10TA7; +DOXY-443 PO; +STEG5TAB
== END 2022-01-24 18:08 | disposition home or self-care (01) ==
LOC: M ED 14:43
DX: L02.31 Cutaneous abscess of buttock (principal); E83.110 Hereditary hemochromatosis; E11.9 Type 2 diabetes mellitus without complications; I10 Essential (primary) hypertension; E78.5 Hyperlipidemia, unspecified; J45.909 Unspecified asthma, uncomplicated; F17.200 Nicotine dependence, unspecified, uncomplicated; Z88.0 Allergy status to penicillin; Z88.2 Allergy status to sulfonamides; Z88.8 Allergy status to other drugs, medicaments and biological substances; Z79.899 Other long term (current) drug therapy

== ENCOUNTER → 2022-03-21 | Outpatient (REF) | payer OTHER ==
[2022-03-21 17:12] LABS: HEMATOCRIT 50.1 % (36.0-47.0); HEMOGLOBIN 16.7 g/dl (12.0-15.5); MEAN CORPUSCULAR HEMOGLOBIN 30.9 pg (27.0-33.0); MEAN CORPUSCULAR HGB CONC 33.3 g/dl (32.0-36.5); MEAN CORPUSCULAR VOLUME 92.8 fl (80.0-96.0); PLATELET COUNT, AUTOMATED 313 10^3/uL (150-450); WHITE BLOOD COUNT 14.3 10^3/uL (4.0-10.0)
[2022-03-21 17:14] LABS: AMORPHOUS SEDIMENT LARGE (NEGATIVE); APPEARANCE, URINE TURBID (CLEAR); BACTERIA, URINE AUTO NEGATIVE (NEGATIVE); BILIRUBIN, URINE AUTO NEGATIVE (NEGATIVE); BLOOD, URINE BLOOD NEGATIVE (NEGATIVE); COLOR, URINE AMBER (YELLOW); GLUCOSE, URINE (UA) AUTO NEGATIVE (NEGATIVE); KETONE, URINE AUTO NEGATIVE (NEGATIVE); LEUKOCYTE ESTERASE, URINE AUTO NEGATIVE (NEGATIVE); MUCUS, URINE LARGE (NEGATIVE); NITRITE, URINE AUTO NEGATIVE (NEGATIVE); PROTEIN, URINE AUTO NEGATIVE (NEGATIVE); RBC, URINE AUTO 0 /HPF (0-3); SPECIFIC GRAVITY URINE AUTO 1.021 (1.002-1.035); SQUAMOUS EPITHELIAL CELL UR AU 6 /HPF (0-6); UROBILINOGEN, URINE AUTO 0.2 mg/dL (0.0-2.0); WBC, URINE AUTO 0 /HPF (0-3)
[2022-03-21 17:37] LABS: TOTAL PROTEIN,RANDOM URINE 19.3 MG/DL (0.0-12.0)
[2022-03-21 17:40] LABS: ALBUMIN 4.6 GM/DL (3.2-5.2); ALT/SGPT 26 U/L (12-78); BILIRUBIN,DIRECT 0.1 MG/DL (0.0-0.2); BILIRUBIN,TOTAL 0.6 MG/DL (0.2-1.0); BLOOD UREA NITROGEN 14 MG/DL (7-18); CALCIUM LEVEL 10.3 MG/DL (8.5-10.1); CARBON DIOXIDE LEVEL 26 MEQ/L (21-32); CHLORIDE LEVEL 107 MEQ/L (98-107); COMPLEMENT C3 190 MG/DL (90-180); COMPLEMENT C4 40 MG/DL (10-40); CREATININE FOR GFR 0.52 MG/DL (0.55-1.30); ERYTHROCYTE SEDIMENTATION RATE 13 mm/hr (0-20); GLOMERULAR FILTRATION RATE > 60.0 (>60); GLUCOSE, FASTING 104 MG/DL (70-100); IRON (FE) 92 UG/DL (50-170); MAGNESIUM LEVEL 2.3 MG/DL (1.8-2.4); PHOSPHORUS LEVEL 4.6 MG/DL (2.5-4.9); POTASSIUM SERUM 4.4 MEQ/L (3.5-5.1); SODIUM LEVEL 140 MEQ/L (136-145); TOTAL PROTEIN 8.2 GM/DL (6.4-8.2)
[2022-03-21 17:42] LABS: HEPATITIS B SURFACE ANTIBODY NEGATIVE (POSITIVE); TOTAL 25(OH) VITAMIN D 15.4 NG/ML (30.0-100.0)
[2022-03-21 17:43] LABS: VITAMIN B12 LEVEL 472 PG/ML (247-911)
[2022-03-21 17:53] LABS: HEPATITIS B SURFACE ANTIGEN NEGATIVE (NEGATIVE)
[2022-03-21 17:56] LABS: ATYPICAL LYMPH 6 % (0-5); EOSINOPHILS 2 % (0-3); LYMPHOCYTES 45 % (16-44); MONOCYTES 3 % (0-5); NEUTROPHILS 44 % (28-66); PLATELET ESTIMATE NORMAL (NORMAL)
[2022-03-21 18:22] LABS: HEPATITIS C VIRUS ABY INDEX 0.1 INDEX (<0.8)
[2022-03-24 10:06] LABS: DRVV SCREEN 39.1 SEC
== END ==
LOC: M SFHCRHEU 14:19
PROVIDERS: ATTEND Internal Medicine
DX: R76.8 Other specified abnormal immunological findings in serum (principal)

== ENCOUNTER → 2022-04-17 | Outpatient (CLI) | payer OTHER | LOC: M WUC 14:43 | PROVIDERS: ATTEND Internal Medicine | DX: M77.31 Calcaneal spur, right foot (principal); M77.32 Calcaneal spur, left foot; M25.40 Effusion, unspecified joint; M70.60 Trochanteric bursitis, unspecified hip ==

== ENCOUNTER → 2022-04-17 | Outpatient (CLI) | payer OTHER ==
[2022-04-17 17:19] LABS: FREE T4 0.95 NG/DL (0.76-1.46); THYROID STIMULATING HORMONE 2.47 uIU/ML (0.358-3.740)
== END ==
LOC: M WUC 13:27
PROVIDERS: ATTEND Nurse Practitioner Family
DX: E04.2 Nontoxic multinodular goiter (principal)

== ENCOUNTER → 2022-05-01 | Outpatient (CLI) | payer OTHER | LOC: M SLEEP HO 13:54 | PROVIDERS: ATTEND Internal Medicine | DX: R53.82 Chronic fatigue, unspecified (principal) ==

== ENCOUNTER → 2022-09-09 | Outpatient (REF) | payer OTHER ==
[~2022-09-09] MED LIST changes: +IBUP1TAB7 PO; +LEVO1TAB39; -LEVO500T4
[2022-09-09 19:23] LABS: CREATININE, URINE 57.1 MG/DL; MALB URINE SIEMENS 47.5 MG/L; MAU/CREAT RATIO 83.1 MCG/MG (0.0-30.0)
== END ==
LOC: M LAB REF 17:03
PROVIDERS: ATTEND Nurse Practitioner Family
DX: E11.65 Type 2 diabetes mellitus with hyperglycemia (principal)

== ENCOUNTER → 2022-10-23 | Outpatient (CLI) | payer OTHER ==
[~2022-10-23] MED LIST changes: +OZEM2INJ
== END ==
LOC: M RAD 14:28
PROVIDERS: ATTEND Internal Medicine Medical Oncology
DX: I89.0 Lymphedema, not elsewhere classified (principal)

== ENCOUNTER → 2022-11-12 | Outpatient (CLI) | payer OTHER ==
[2022-11-12 14:15] LABS: THYROID STIMULATING HORMONE 2.191 uIU/ML (0.55-4.78)
[2022-11-12 14:17] LABS: BLOOD UREA NITROGEN 12 MG/DL (9-23); CALCIUM LEVEL 9.2 MG/DL (8.5-10.1); CARBON DIOXIDE LEVEL 29 MMOL/L (20-31); CHLORIDE LEVEL 105 MMOL/L (98-107); CREATININE FOR GFR 0.57 MG/DL (0.55-1.30); GLOMERULAR FILTRATION RATE > 60.0 (>60); GLUCOSE, FASTING 172 MG/DL (60-100); POTASSIUM SERUM 4.3 MMOL/L (3.5-5.1); SODIUM LEVEL 141 MMOL/L (136-145)
[2022-11-12 14:19] LABS: FREE T4 0.89 NG/DL (0.89-1.76)
== END ==
LOC: M PLALAB 10:15
PROVIDERS: ATTEND Surgery
DX: R59.0 Localized enlarged lymph nodes (principal)

== ENCOUNTER → 2022-12-03 | Outpatient (CLI) | payer OTHER ==
[~2022-12-03] MED LIST changes: +PROHANCE 279.3MG/ML 15ML VIAL ONE; +PROHANCE 279.3MG/ML 5ML VIAL ONE
== END ==
LOC: M PLAIMG 08:09
PROVIDERS: ATTEND Surgery
DX: R50.9 Fever, unspecified (principal); N64.52 Nipple discharge

== ENCOUNTER → 2023-01-28 | Outpatient (CLI) | payer OTHER ==
[~2023-01-28] MED LIST changes: -PROHANCE 279.3MG/ML 15ML VIAL ONE; -PROHANCE 279.3MG/ML 5ML VIAL ONE
== END ==
LOC: M WUC 15:50
PROVIDERS: ATTEND Internal Medicine
DX: E55.9 Vitamin D deficiency, unspecified (principal)

== ENCOUNTER → 2023-02-24 | Outpatient (CLI) | payer OTHER ==
[~2023-02-24] MED LIST changes: +ATOR40TA75; +BASA100I SC; +CYCL-707; +SEMA1PEN2
== END ==
LOC: M WHC 13:25
PROVIDERS: ATTEND Surgery
DX: R59.0 Localized enlarged lymph nodes (principal)

== ENCOUNTER → 2023-03-06 | Outpatient (CLI) | payer OTHER | LOC: M WHC 11:01 | PROVIDERS: ATTEND Nurse Practitioner | DX: E83.110 Hereditary hemochromatosis (principal) ==

== ENCOUNTER 2023-07-09 12:34 | Emergency (ER) | payer OTHER ==
[~2023-07-09] VITALS: Ht 160 cm; Wt 83.5 kg
[~2023-07-09 12:34] MED LIST changes: +ERGO500029; +INSU100I43 SQ; +SEMA2PEN SQ
[2023-07-09 12:35] VITALS: TEMP 97.6
[2023-07-09 14:04] VITALS: O2SAT 94
[2023-07-09 14:11] LABS: HEMATOCRIT 46.5 % (36.0-47.0); HEMOGLOBIN 16.1 g/dl (12.0-15.5); MEAN CORPUSCULAR HEMOGLOBIN 31.6 pg (27.0-33.0); MEAN CORPUSCULAR HGB CONC 34.6 g/dl (32.0-36.5); MEAN CORPUSCULAR VOLUME 91.4 fl (80.0-96.0); PLATELET COUNT, AUTOMATED 323 10^3/uL (150-450); RED BLOOD COUNT 5.09 10^6/uL (4.00-5.40); WHITE BLOOD COUNT 12.1 10^3/uL (4.0-10.0)
[2023-07-09 14:15] VITALS: BP 123/85
[2023-07-09 14:23] LABS: CK-MB VALUE MASS < 1.0 NG/ML (<3.6)
[2023-07-09 14:25] LABS: BLOOD UREA NITROGEN 9 MG/DL (9-23); CALCIUM LEVEL 10.1 MG/DL (8.5-10.1); CARBON DIOXIDE LEVEL 28 MMOL/L (20-31); CHLORIDE LEVEL 105 MMOL/L (98-107); CREATININE FOR GFR 0.54 MG/DL (0.55-1.30); GLOMERULAR FILTRATION RATE > 60.0 (>58); GLUCOSE, FASTING 119 MG/DL (60-100); POTASSIUM SERUM 4.1 MMOL/L (3.5-5.1); SODIUM LEVEL 143 MMOL/L (136-145)
[2023-07-09 14:28] LABS: THYROID STIMULATING HORMONE 2.181 uIU/ML (0.55-4.78)
[2023-07-09 14:32] LABS: CPK CREATINE PHOSPHOKINASE 98 U/L (34-145); MB/CK RELATIVE INDEX 1.02 (< OR =4)
[2023-07-09 14:36] LABS: ATYPICAL LYMPH 2 % (0-5); BASOPHILS 1 % (0-1); EOSINOPHILS 1 % (0-3); LYMPHOCYTES 54 % (16-44); MONOCYTES 1 % (0-5); NEUTROPHILS 41 % (28-66); PLATELET ESTIMATE NORMAL (NORMAL)
[2023-07-09] MEDS ORDERED: ISOVUE-370 76% 100ML VIAL As Ordered ONE (14:39)
[2023-07-09] MEDS ORDERED: PROT1TAB2 PO (15:24)
== END 2023-07-09 15:50 | disposition home or self-care (01) ==
LOC: M ED 12:34
DX: K29.00 Acute gastritis without bleeding (principal); R07.89 Other chest pain; E11.9 Type 2 diabetes mellitus without complications; I10 Essential (primary) hypertension; F90.9 Attention-deficit hyperactivity disorder, unspecified type; E83.110 Hereditary hemochromatosis; D72.829 Elevated white blood cell count, unspecified; Z88.0 Allergy status to penicillin; Z88.2 Allergy status to sulfonamides; Z88.8 Allergy status to other drugs, medicaments and biological substances; Z88.1 Allergy status to other antibiotic agents; Z79.899 Other long term (current) drug therapy; Z79.4 Long term (current) use of insulin
CPT/HCPCS: 36415; 71045; 71275; 80048; 82550; 82553; 84443; 85025; 93005; 93041; 94760; 99285; Q9967

== ENCOUNTER → 2023-08-12 | Outpatient (CLI) | payer OTHER ==
[~2023-08-12] MED LIST changes: +ALBU8.5H INH; +BUPR-71 PO; -CLAR10TA7; +CLAR10TA7 PO; -CYCL-707; -ERGO500029; +ERGO500029 PO; +ESTR10TA TOP; +PROT1TAB2 PO; +ROSU40TA4 PO
== END ==
LOC: M RAD 15:32
PROVIDERS: ATTEND Internal Medicine Medical Oncology
DX: I89.0 Lymphedema, not elsewhere classified (principal)

== ENCOUNTER 2023-09-18 17:34 | Inpatient (IN) | payer OTHER ==
[~2023-09-18] VITALS: Ht 162.6 cm; Wt 81.2 kg
[2023-09-18 19:45] VITALS: BP 147/90; TEMP 97.7; O2SAT 96
[2023-09-18] MEDS ORDERED: DEXTROSE 50% 50ML SYRINGE IV PRN (20:00)
[2023-09-18] MEDS ORDERED: GLUCOSE 4GM CHEW TABLET PO PRN (20:00)
[2023-09-18] MEDS ORDERED: ONDANSETRON 4MG 2ML VIAL IV PRN (20:00)
[2023-09-18] MEDS ORDERED: KETOROLAC 30 MG/ML 1ML VIAL IV PRN (20:00)
[2023-09-18] MEDS ORDERED: HYDROMORPHONE HCL 0.5 MG/ 0.5 ML SYRINGE IV PRN (20:00)
[2023-09-18] MEDS ORDERED: GLUCAGON INJ 1MG VIAL SC PRN (20:00)
[2023-09-18 20:36] LABS: HEMATOCRIT 40.9 % (36.0-47.0); HEMOGLOBIN 14.2 g/dl (12.0-15.5); MEAN CORPUSCULAR HEMOGLOBIN 31.9 pg (27.0-33.0); MEAN CORPUSCULAR HGB CONC 34.7 g/dl (32.0-36.5); MEAN CORPUSCULAR VOLUME 91.9 fl (80.0-96.0); PLATELET COUNT, AUTOMATED 306 10^3/uL (150-450); RED BLOOD COUNT 4.45 10^6/uL (4.00-5.40); WHITE BLOOD COUNT 7.2 10^3/uL (4.0-10.0)
[2023-09-18] MEDS ORDERED: ACET-683 PO (20:46)
[2023-09-18] MEDS ORDERED: CLIN-250 PO (20:46)
[2023-09-18] MEDS ORDERED: HOME MED LIST COMPLETE! XX SCH (20:50)
[2023-09-18 20:58] LABS: BLOOD UREA NITROGEN 12 MG/DL (9-23); CALCIUM LEVEL 9.2 MG/DL (8.5-10.1); CARBON DIOXIDE LEVEL 24 MMOL/L (20-31); CHLORIDE LEVEL 106 MMOL/L (98-107); CREATININE FOR GFR 0.46 MG/DL (0.55-1.30); GLOMERULAR FILTRATION RATE > 60.0 (>58); GLUCOSE, FASTING 202 MG/DL (60-100); POTASSIUM SERUM 3.9 MMOL/L (3.5-5.1); SODIUM LEVEL 141 MMOL/L (136-145)
[2023-09-18] MEDS ORDERED: LR 1,000 ML IV SCH (21:00)
[2023-09-18] MEDS: HEPARIN SOD (PORCINE) 5000UNITS/ML 1ML VIAL/SYRINGE SC SCH (22:00)
[2023-09-18] MEDS ORDERED: diphenhydrAMINE 50MG/ML VIAL IV PRN (22:25)
[2023-09-18] MEDS: CLINDAMYCIN 150MG CAPSULE PO SCH (22:34)
[2023-09-19] MEDS: INSULIN LISPRO (NovoLOG) PER UNIT SC SCH ×3 (00:08→12:00)
[2023-09-19] MEDS: HEPARIN SOD (PORCINE) 5000UNITS/ML 1ML VIAL/SYRINGE SC SCH (05:22)
[2023-09-19 05:50] VITALS: BP 127/76; TEMP 97.7; O2SAT 97
[2023-09-19 06:37] LABS: BLOOD UREA NITROGEN 18 MG/DL (9-23); CALCIUM LEVEL 9.2 MG/DL (8.5-10.1); CARBON DIOXIDE LEVEL 23 MMOL/L (20-31); CHLORIDE LEVEL 107 MMOL/L (98-107); CREATININE FOR GFR 0.52 MG/DL (0.55-1.30); GLOMERULAR FILTRATION RATE > 60.0 (>58); GLUCOSE, FASTING 315 MG/DL (60-100); POTASSIUM SERUM 3.9 MMOL/L (3.5-5.1); SODIUM LEVEL 142 MMOL/L (136-145)
[2023-09-19] MEDS: CLINDAMYCIN 150MG CAPSULE PO SCH (08:47)
== END 2023-09-19 13:31 | disposition home or self-care (01) | DRG 663 ==
LOC: M MSPAV 19:46
PROVIDERS: ADMIT Student in an Organized Health Care Education/Training Program; ATTEND Internal Medicine
PROC: 0WJ3XZZ Inspection of Oral Cavity and Throat, External Approach (ICD-10-PCS; principal; 2023-09-19)
DX: L04.0 Acute lymphadenitis of face, head and neck (principal); E11.9 Type 2 diabetes mellitus without complications; F41.9 Anxiety disorder, unspecified; J45.909 Unspecified asthma, uncomplicated; E78.00 Pure hypercholesterolemia, unspecified; F17.210 Nicotine dependence, cigarettes, uncomplicated; Z79.899 Other long term (current) drug therapy; Z88.0 Allergy status to penicillin; Z88.1 Allergy status to other antibiotic agents; Z88.2 Allergy status to sulfonamides; Z88.8 Allergy status to other drugs, medicaments and biological substances; K04.7 Periapical abscess without sinus

== ENCOUNTER → 2023-12-04 | Outpatient (CLI) | payer OTHER ==
[~2023-12-04] MED LIST changes: +ACET-683 PO; +CLIN-250 PO; +ESTR10TA VG; +ISOVUE-370 76% 100ML VIAL As Ordered ONE; +LANTINJ4; +LANTINJ4 SQ
== END ==
LOC: M RAD 09:03
PROVIDERS: ATTEND Internal Medicine Medical Oncology
DX: R22.1 Localized swelling, mass and lump, neck (principal)
CPT/HCPCS: 70491; Q9967

== ENCOUNTER 2024-11-17 20:50 | Emergency (ER) | payer OTHER ==
[~2024-11-17] VITALS: Ht 162.6 cm; Wt 79.1 kg
[~2024-11-17 20:50] MED LIST changes: +DOXY-441 PO; -DOXY-443 PO; -ISOVUE-370 76% 100ML VIAL As Ordered ONE; +ONDA-282 PO; -ONDA4TAB6 PO; -ROSU40TA4 PO; +ROSU40TA81 PO
[2024-11-17 20:55] VITALS: BP 186/98; TEMP 98.1; O2SAT 100
== END 2024-11-17 21:48 | disposition left against medical advice (07) ==
LOC: M ED 20:50
DX: Z53.21 Procedure and treatment not carried out due to patient leaving prior to being seen by health care provider (principal)

== ENCOUNTER → 2024-12-15 | Outpatient (CLI) | payer OTHER ==
[2024-12-15 14:18] LABS: BASO # 0.1 10^3/uL (0.0-0.2); BASO % 0.6 % (0.0-1.0); EOS # 0.1 10^3/uL (0.0-0.5); EOS % 1.7 % (0.0-3.0); HEMATOCRIT 43.9 % (36.0-47.0); HEMOGLOBIN 14.8 g/dl (12.0-15.5); LYMPH # 4.2 10^3/uL (1.5-5.0); LYMPH % 51.5 % (24.0-44.0); MEAN CORPUSCULAR HEMOGLOBIN 30.5 pg (27.0-33.0); MEAN CORPUSCULAR HGB CONC 33.7 g/dl (32.0-36.5); MEAN CORPUSCULAR VOLUME 90.5 fl (80.0-96.0); MONO # 0.5 10^3/uL (0.0-0.8); MONO % 5.8 % (2.0-8.0); NEUTROPHILS # 3.3 10^3/uL (1.5-8.5); NEUTROPHILS % 40.2 % (36.0-66.0); PLATELET COUNT, AUTOMATED 262 10^3/uL (150-450); RED BLOOD COUNT 4.85 10^6/uL (4.00-5.40); WHITE BLOOD COUNT 8.2 10^3/uL (4.0-10.0)
[2024-12-15 14:43] LABS: C REACTIVE PROTEIN QUANTITATIV < 0.50 MG/DL (<1.0); LDH LACTATE DEHYDROGENASE 186 U/L (120-246)
== END ==
LOC: M PLALAB 11:10
PROVIDERS: ATTEND Internal Medicine Hematology
DX: D72.829 Elevated white blood cell count, unspecified (principal)

== ENCOUNTER 2025-01-02 11:01 | Outpatient (CLI) | payer OTHER ==
[~2025-01-02] VITALS: Ht 162.6 cm; Wt 79.5 kg
[2025-01-02 11:05] VITALS: BP 129/73; O2SAT 100
[2025-01-02 12:00] VITALS: BP 124/82; O2SAT 96
[2025-01-02 12:20] LABS: HEMATOCRIT 41.4 % (36.0-47.0); HEMOGLOBIN 13.9 g/dl (12.0-15.5); MEAN CORPUSCULAR HEMOGLOBIN 30.8 pg (27.0-33.0); MEAN CORPUSCULAR HGB CONC 33.6 g/dl (32.0-36.5); MEAN CORPUSCULAR VOLUME 91.8 fl (80.0-96.0); PLATELET COUNT, AUTOMATED 291 10^3/uL (150-450); RED BLOOD COUNT 4.51 10^6/uL (4.00-5.40); WHITE BLOOD COUNT 8.4 10^3/uL (4.0-10.0)
== END 2025-01-02 12:00 ==
LOC: M INFU 11:01
PROVIDERS: ATTEND Internal Medicine Hematology
DX: E83.118 Other hemochromatosis (principal)

== ENCOUNTER 2025-01-12 10:00 | Outpatient (CLI) | payer OTHER ==
[2025-01-12 10:00] VITALS: BP 146/79; O2SAT 98
[2025-01-12 10:45] LABS: HEMOGLOBIN 13.4 g/dl (12.0-15.5); MEAN CORPUSCULAR HEMOGLOBIN 30.8 pg (27.0-33.0); MEAN CORPUSCULAR HGB CONC 33.5 g/dl (32.0-36.5); PLATELET COUNT, AUTOMATED 295 10^3/uL (150-450); RED BLOOD COUNT 4.35 10^6/uL (4.00-5.40); WHITE BLOOD COUNT 8.4 10^3/uL (4.0-10.0)
[2025-01-12 11:40] VITALS: BP 136/83; O2SAT 98
== END 2025-01-12 11:40 ==
LOC: M INFU 10:00
PROVIDERS: ATTEND Internal Medicine Hematology
DX: E83.118 Other hemochromatosis (principal)

== ENCOUNTER 2025-01-30 16:31 | Outpatient (CLI) | payer OTHER, SELFPAY ==
[2025-01-30 16:56] LABS: HEMATOCRIT 36.4 % (36.0-47.0); HEMOGLOBIN 12.3 g/dl (12.0-15.5); MEAN CORPUSCULAR HEMOGLOBIN 31.3 pg (27.0-33.0); MEAN CORPUSCULAR HGB CONC 33.8 g/dl (32.0-36.5); MEAN CORPUSCULAR VOLUME 92.6 fl (80.0-96.0); PLATELET COUNT, AUTOMATED 294 10^3/uL (150-450); RED BLOOD COUNT 3.93 10^6/uL (4.00-5.40)
== END 2025-01-30 16:45 ==
LOC: M INFU 16:31
PROVIDERS: ATTEND Internal Medicine Hematology
DX: E83.119 Hemochromatosis, unspecified (principal)

== ENCOUNTER → 2025-06-23 | Outpatient (REF) | payer OTHER ==
[~2025-06-23] MED LIST changes: +TIRZ10PE; +VYVA1CAP
[2025-06-23 16:04] LABS: APPEARANCE, URINE CLOUDY (CLEAR); BACTERIA, URINE AUTO NEGATIVE (NEGATIVE); BILIRUBIN, URINE AUTO NEGATIVE (NEGATIVE); BLOOD, URINE BLOOD 3+ (NEGATIVE); GLUCOSE, URINE (UA) AUTO NEGATIVE (NEGATIVE); KETONE, URINE AUTO NEGATIVE (NEGATIVE); LEUKOCYTE ESTERASE, URINE AUTO 2+ (NEGATIVE); MUCUS, URINE SMALL (NEGATIVE); NITRITE, URINE AUTO POSITIVE (NEGATIVE); PROTEIN, URINE AUTO 1+ mg/dL (NEGATIVE); RBC, URINE AUTO 91 /HPF (0-3); SPECIFIC GRAVITY URINE AUTO 1.021 (1.002-1.035); SQUAMOUS EPITHELIAL CELL UR AU 1 /HPF (0-6); TRANSITIONAL EPITHELIAL AUTO 1 /HPF; UROBILINOGEN, URINE AUTO 2.0 mg/dL (0.0-2.0); WBC, URINE AUTO TNTC /HPF (0-3)
== END ==
LOC: M LAB REF 15:24
PROVIDERS: ATTEND Physician Assistant Medical
DX: R39.9 Unspecified symptoms and signs involving the genitourinary system (principal)